=== PATIENT | male | born 1960 | race African-American/Black ===

== ENCOUNTER 2016-11-06 07:06 | Emergency (ER) | payer SELFPAY ==
--- NOTE | 2016-11-06 08:14 | RAD ---
2 VIEWS CHEST: Date: 11/06/16 COMPARISON: 06/14/16. HISTORY: Shortness of breath for 3 weeks. FINDINGS: Two views of the chest show normal sized cardiomediastinal silhouette. There is no evidence of conso lidation, mass, or pleural effusion. The bones are unremarkable. IMPRESSION: No evidence of acute cardiopulmonary disease. POS: [facility]
[2016-11-06 08:44] LABS: #Basophils 0.1 thou/uL (0.0-0.2); #Eosinphils 0.1 thou/uL (0.0-0.7); #Lymphocytes 1.9 thou/uL (1.20-3.40); #Monocytes 0.7 thou/uL (0.11-0.59); #Neutrophils 3.4 thou/uL (1.40-6.50); %Basophils 1.4 % (0.0-1.0); %Eosinophils 1.4 % (0.0-10.0); %Lymphocytes 31.5 % (21.0-51.0); %Monocytes 11.2 % (0.0-10.0); Hematocrit 47.9 % (42.0-52.0); Mean Platelet Volume 7.5 fL (7.4-10.4); Red Blood Cell (RBC) Count 5.56 mill/uL (4.70-6.10); White Blood Cell (WBC) Count 6.2 thou/uL (4.8-10.8)
[2016-11-06 09:08] LABS: ALT (SGPT) 25 U/L (8-55); AST (SGOT) 19 U/L (5-34); Alkaline Phosphatase 95 U/L (40-150); Anion Gap 15 mmol/L (10-20); BUN (Urea Nitrogen) 15 mg/dL (8.4-25.7); Bilirubin, Total 0.3 mg/dL (0.2-1.2); CK (CPK) 182 U/L (30-200); Calc. Creatinine Clearance 0 mL/min (70-130); Calcium 9.1 mg/dL (7.8-10.44); Carbon Dioxide 22 mmol/L (22-29); Chloride 106 mmol/L (98-107); Estimated GFR-MDRD 59; Globulin 3.8 g/dL (2.4-3.5); Lipase 35 U/L (8-78); Protein, Total 7.9 g/dL (6.0-8.3)
[2016-11-06 09:31] LABS: Troponin I Less than 0.010 ng/mL (< 0.028)
== END 2016-11-06 09:25 | disposition left against medical advice (07) ==
LOC: ERS 07:06
DX: R06.02 Shortness of breath (principal); R06.2 Wheezing; F17.220 Nicotine dependence, chewing tobacco, uncomplicated; I10 Essential (primary) hypertension; I48.91 Unspecified atrial fibrillation; E78.5 Hyperlipidemia, unspecified; Z79.82 Long term (current) use of aspirin; Z79.899 Other long term (current) drug therapy; Z53.21 Procedure and treatment not carried out due to patient leaving prior to being seen by health care provider
CPT/HCPCS: 36415; 71020; 80053; 82550; 82553; 83690; 84484; 85025; 85379; 93005; 94760

== ENCOUNTER 2016-12-20 09:06 | Emergency (ER) | payer SELFPAY | END 2016-12-20 09:48 | disposition home or self-care (01) | LOC: ERS 09:06 | DX: J30.9 Allergic rhinitis, unspecified (principal); I48.91 Unspecified atrial fibrillation; E78.5 Hyperlipidemia, unspecified; I10 Essential (primary) hypertension; F17.220 Nicotine dependence, chewing tobacco, uncomplicated | CPT/HCPCS: 99283 ==

== ENCOUNTER 2017-01-21 04:45 | Emergency (ER) | payer SELFPAY ==
[2017-01-21 05:46] LABS: #Basophils 0.1 thou/uL (0.0-0.2); #Eosinphils 0.1 thou/uL (0.0-0.7); #Lymphocytes 1.3 thou/uL (1.20-3.40); #Monocytes 0.5 thou/uL (0.11-0.59); %Basophils 1.8 % (0.0-1.0); %Eosinophils 1.5 % (0.0-10.0); %Lymphocytes 26.5 % (21.0-51.0); %Monocytes 10.6 % (0.0-10.0); Hematocrit 44.5 % (42.0-52.0); Mean Platelet Volume 9.5 fL (7.4-10.4); Red Blood Cell (RBC) Count 5.13 mill/uL (4.70-6.10); White Blood Cell (WBC) Count 5.1 thou/uL (4.8-10.8)
[2017-01-21 05:50] LABS: PTT 27.8 SEC (22.9-36.1); Prothrombin Time 12.9 SEC (12.0-14.7)
[2017-01-21 06:11] LABS: ALT (SGPT) 23 U/L (8-55); AST (SGOT) 18 U/L (5-34); Alkaline Phosphatase 80 U/L (40-150); Anion Gap 11 mmol/L (10-20); BUN (Urea Nitrogen) 19 mg/dL (8.4-25.7); Bilirubin, Total 0.3 mg/dL (0.2-1.2); CK (CPK) 232 U/L (30-200); Calc. Creatinine Clearance 0 mL/min (70-130); Carbon Dioxide 24 mmol/L (22-29); Chloride 108 mmol/L (98-107); Estimated GFR-MDRD 56; Globulin 3.5 g/dL (2.4-3.5); Protein, Total 7.3 g/dL (6.0-8.3)
[2017-01-21 06:12] LABS: Troponin I Less than 0.010 ng/mL (< 0.028)
[2017-01-21] MEDS ORDERED: Metoprolol Tartrate 5 MG/5 ML VIAL ONE (06:21)
[2017-01-21] MEDS ORDERED: Lisinopril 10 MG TAB ONE (06:21)
[2017-01-21] MEDS ORDERED: Furosemide 40 MG/4 ML VIAL ONE (06:21)
--- NOTE | 2017-01-21 08:01 | RAD ---
SINGLE VIEW CHEST: Date: 01/21/17 COMPARISON: 11/06/16. HISTORY: Chest pain. FINDINGS: Single view of the chest shows a normal sized cardiomediastinal silhouette. There is no evidence of c onsolidation, mass, or pleural effusion. The bones are unremarkable. IMPRESSION: No evidence of acute cardiopulmonary disease. POS: [facility]
== END 2017-01-21 07:16 | disposition home or self-care (01) ==
LOC: ERS 04:45
DX: J45.909 Unspecified asthma, uncomplicated (principal); I48.91 Unspecified atrial fibrillation; E78.5 Hyperlipidemia, unspecified; F17.220 Nicotine dependence, chewing tobacco, uncomplicated; Z79.82 Long term (current) use of aspirin; Z79.899 Other long term (current) drug therapy
CPT/HCPCS: 71010; 80053; 82553; 83880; 84484; 85025; 85610; 85730; 93005; 94640; 96374; 96375; 99406; J1940; J7620

== ENCOUNTER 2017-04-05 11:16 | Emergency (ER) | payer SELFPAY ==
[2017-04-05] MEDS ORDERED: Water For Inject, Bacteriostat 30 ML ONE (12:03)
== END 2017-04-05 12:33 | disposition home or self-care (01) ==
LOC: ERS 11:16
DX: J44.9 Chronic obstructive pulmonary disease, unspecified (principal); J02.9 Acute pharyngitis, unspecified; I48.91 Unspecified atrial fibrillation; E78.5 Hyperlipidemia, unspecified; I10 Essential (primary) hypertension; F17.220 Nicotine dependence, chewing tobacco, uncomplicated; Z79.899 Other long term (current) drug therapy; Z79.82 Long term (current) use of aspirin
CPT/HCPCS: 96372; J2920

== ENCOUNTER 2017-05-06 06:02 | Emergency (ER) | payer SELFPAY ==
[2017-05-06] MEDS ORDERED: methylPREDNISolone Sod Succ/PF 125 MG/2 ML VIAL ONE (06:44)
[2017-05-06 06:52] LABS: #Basophils 0.1 thou/uL (0.0-0.2); #Eosinphils 0.1 thou/uL (0.0-0.7); #Lymphocytes 2.3 thou/uL (1.20-3.40); #Monocytes 0.8 thou/uL (0.11-0.59); #Neutrophils 3.2 thou/uL (1.40-6.50); %Basophils 1.1 % (0.0-1.0); %Eosinophils 1.8 % (0.0-10.0); %Lymphocytes 35.4 % (21.0-51.0); %Monocytes 12.5 % (0.0-10.0); %Neutrophils 49.3 % (42.0-75.0); Hemoglobin 15.3 g/dL (14.0-18.0); Mean Corpuscular HGB CONC 33.8 g/dL (32.0-36.0); Mean Corpuscular Hemoglobin 28.5 pg (27.0-31.0); Mean Corpuscular Volume 84.3 fl (80.0-94.0); Mean Platelet Volume 7.5 fL (7.4-10.4); Platelet Count 223 thou/uL (130-400); RBC Distribution Width 13.5 % (11.5-14.5); Red Blood Cell (RBC) Count 5.37 mill/uL (4.70-6.10); White Blood Cell (WBC) Count 6.6 thou/uL (4.8-10.8)
[2017-05-06 06:53] LABS: ALT (SGPT) 23 U/L (8-55); AST (SGOT) 17 U/L (5-34); Albumin 3.9 g/dL (3.5-5.0); Alkaline Phosphatase 85 U/L (40-150); Anion Gap 9 mmol/L (10-20); BUN (Urea Nitrogen) 20 mg/dL (8.4-25.7); Bilirubin, Total 0.4 mg/dL (0.2-1.2); Calc. Creatinine Clearance 0 mL/min (70-130); Calcium 8.7 mg/dL (7.8-10.44); Carbon Dioxide 25 mmol/L (22-29); Chloride 109 mmol/L (98-107); Estimated GFR-MDRD 57; Globulin 3.2 g/dL (2.4-3.5); Glucose 104 mg/dL (70-105); Potassium 3.7 mmol/L (3.5-5.1); Protein, Total 7.1 g/dL (6.0-8.3); Sodium 139 mmol/L (136-145)
[2017-05-06 06:58] LABS: Troponin I Less than 0.010 ng/mL (< 0.028)
--- NOTE | 2017-05-06 07:43 | RAD ---
PORTABLE UPRIGHT FRONTAL CHEST RADIOGRAPH: 05/06/2017 HISTORY: Short of breath. Dyspnea. COMPARISON: 01/21/2017 FINDINGS: The heart and mediastinal contours are stable. No pneumothorax, pleural fluid, focal consolidation, or alveolar edema. IMPRESSION: No acute findings. Stable appearance of the chest. POS: [facility]
--- NOTE | 2017-05-18 22:58 | EKG ---
Test Reason : Blood Pressure : / mmHG Vent. Rate : 062 BPM Atrial Rate : 312 BPM P-R Int : 000 ms QRS Dur : 096 ms QT Int : 396 ms P-R-T Axes : 000 052 061 degrees QTc Int : 401 ms Atrial fibrillation Nonspecific T wave abnormality , probably digitalis effect Abnormal ECG Confirmed by YUMIKO FONSECA, DALLIN ([id number]), subeditor MICHAEL ANSARI ([id number]) on 05/18/2017 10:57:55 PM Referred By: Confirmed By:DALLIN CALDERON MD
== END 2017-05-06 08:03 | disposition home or self-care (01) ==
LOC: ERS 06:02
DX: J45.909 Unspecified asthma, uncomplicated (principal); I10 Essential (primary) hypertension; I48.91 Unspecified atrial fibrillation; E78.5 Hyperlipidemia, unspecified; F17.220 Nicotine dependence, chewing tobacco, uncomplicated; Z79.82 Long term (current) use of aspirin; Z71.6 Tobacco abuse counseling; Z79.899 Other long term (current) drug therapy
CPT/HCPCS: 71045; 80053; 82553; 84484; 85025; 93005; 94640; 96374; 99406; J2930; J7620

== ENCOUNTER 2017-08-15 10:05 | Emergency (ER) | payer SELFPAY ==
[2017-08-15] MEDS ORDERED: traMADol HCl 50 MG TAB ONE (11:09)
[2017-08-15] MEDS ORDERED: Acetaminophen/Codeine 30-300mg Tablet ONE (11:17)
[2017-08-15] MEDS ORDERED: HYDROcodone/Acetaminophen 5/325 mg Tablet ONE (11:20)
--- NOTE | 2017-08-15 11:39 | RAD ---
THREE VIEWS LEFT SHOULDER: Comparison: 06-19-13 History: Left shoulder pain after being hit by a pipe at work. Trauma to left shoulder. FINDINGS: Three views of the left shoulder shows no evidence of acute fracture or dislocation. A bone anchor is seen in the humerus from prior left shoulder surgery. No degenerative changes are seen. The visualiz ed left thorax is unremarkable. IMPRESSION: No evidence of acute osseous abnormality. POS: [facility]
== END 2017-08-15 11:30 | disposition home or self-care (01) ==
LOC: ERS 10:05
DX: S40.012A Contusion of left shoulder, initial encounter (principal); Z71.6 Tobacco abuse counseling; F17.220 Nicotine dependence, chewing tobacco, uncomplicated; I48.91 Unspecified atrial fibrillation; E78.5 Hyperlipidemia, unspecified; I10 Essential (primary) hypertension; Z79.82 Long term (current) use of aspirin; Z79.899 Other long term (current) drug therapy; W22.8XXA Striking against or struck by other objects, initial encounter; Y99.0 Civilian activity done for income or pay
CPT/HCPCS: 99406

== ENCOUNTER 2017-08-19 02:55 | Emergency (ER) | payer SELFPAY ==
[2017-08-19] MEDS ORDERED: HYDROcodone/Acetaminophen 5/325 mg Tablet ONE (04:51)
== END 2017-08-19 04:59 | disposition home or self-care (01) ==
LOC: ERS 02:55
DX: M25.512 Pain in left shoulder (principal); I48.91 Unspecified atrial fibrillation; E78.5 Hyperlipidemia, unspecified; I10 Essential (primary) hypertension; F17.220 Nicotine dependence, chewing tobacco, uncomplicated; Z79.82 Long term (current) use of aspirin; Z79.899 Other long term (current) drug therapy; W20.8XXA Other cause of strike by thrown, projected or falling object, initial encounter
CPT/HCPCS: 99283

== ENCOUNTER 2017-11-20 17:43 | Emergency (ER) | payer SELFPAY ==
[2017-11-20] MEDS ORDERED: Silver Sulfadiazine 1% Cream 50 GM JAR ONE (18:14)
[2017-11-20] MEDS ORDERED: HYDROcodone/Acetaminophen 5/325 mg Tablet ONE ×2 (18:48→18:49)
== END 2017-11-20 18:52 | disposition home or self-care (01) ==
LOC: ERS 17:43
DX: T22.20XA Burn of second degree of shoulder and upper limb, except wrist and hand, unspecified site, initial encounter (principal); I48.91 Unspecified atrial fibrillation; E78.5 Hyperlipidemia, unspecified; F17.220 Nicotine dependence, chewing tobacco, uncomplicated; Z79.82 Long term (current) use of aspirin; Z79.899 Other long term (current) drug therapy; X16.XXXA Contact with hot heating appliances, radiators and pipes, initial encounter
CPT/HCPCS: 16020

== ENCOUNTER 2017-12-24 12:45 | Emergency (ER) | payer SELFPAY ==
--- NOTE | 2017-12-24 13:55 | RAD ---
CHEST TWO VIEWS: HISTORY: A 57-year-old male with a history of cough for one week and history of COPD. COMPARISON: 11/06/2016 FINDINGS: Minimal cardiomegaly. Monitor leads overly the chest. No confluent pneumonia, overt edema, or pleur al effusion. IMPRESSION: Cardiomegaly without other acute process. Little change from prior study. POS: [facility]
== END 2017-12-24 13:34 | disposition home or self-care (01) ==
LOC: ERS 12:45
DX: J40 Bronchitis, not specified as acute or chronic (principal); I10 Essential (primary) hypertension; J44.9 Chronic obstructive pulmonary disease, unspecified; I48.91 Unspecified atrial fibrillation; E78.5 Hyperlipidemia, unspecified; F17.220 Nicotine dependence, chewing tobacco, uncomplicated; Z79.82 Long term (current) use of aspirin; Z79.899 Other long term (current) drug therapy
CPT/HCPCS: 71046; 93005

== ENCOUNTER 2018-01-06 00:45 | Emergency (ER) | payer SELFPAY ==
[2018-01-06 01:22] LABS: Bilirubin Negative (Negative); Blood, Urine Negative (Negative); Clarity CLEAR (Clear); Glucose, Urine (Dipstick) Negative (Negative); Leukocyte Negative (Negative); Nitrite Negative (Negative); Protein, Urine (Dipstick) 100 mg/dL (Neg-Trace); Specific Gravity, Urine 1.012 (1.002-1.036)
[2018-01-06 01:24] LABS: Bacteria/HPF None Seen HPF (None Seen); Hyaline Casts/LPF 0-3 HYALINE CAST LPF (0-3 Hyaline); RBC/HPF 0-3 HPF (0-3); Squamous Epithelial None Seen HPF (0-3); WBC/HPF None Seen HPF (0-3)
[2018-01-06 01:42] LABS: #Basophils 0.1 thou/uL (0.0-0.2); #Eosinphils 0.1 thou/uL (0.0-0.7); #Lymphocytes 1.9 thou/uL (1.20-3.40); #Monocytes 0.6 thou/uL (0.11-0.59); #Neutrophils 3.8 thou/uL (1.40-6.50); %Basophils 1.3 % (0.0-1.0); %Lymphocytes 29.1 % (21.0-51.0); %Monocytes 9.3 % (0.0-10.0); %Neutrophils 59.4 % (42.0-75.0); Mean Corpuscular HGB CONC 33.3 g/dL (32.0-36.0); Mean Corpuscular Hemoglobin 28.3 pg (27.0-31.0); Mean Corpuscular Volume 84.9 fL (78.0-98.0); Mean Platelet Volume 8.5 fL (7.4-10.4); Platelet Count 204 thou/uL (130-400); RBC Distribution Width 13.1 % (11.5-14.5); Red Blood Cell (RBC) Count 5.29 mill/uL (4.70-6.10); White Blood Cell (WBC) Count 6.4 thou/uL (4.8-10.8)
[2018-01-06] MEDS ORDERED: Dexamethasone 10 MG/ML VIAL ONE (01:43)
[2018-01-06 02:04] LABS: ALT (SGPT) 38 U/L (8-55); AST (SGOT) 29 U/L (5-34); Albumin 3.9 g/dL (3.5-5.0); Alkaline Phosphatase 85 U/L (40-150); Anion Gap 13 mmol/L (10-20); BUN (Urea Nitrogen) 18 mg/dL (8.4-25.7); Bilirubin, Total 0.3 mg/dL (0.2-1.2); Calc. Creatinine Clearance 0 mL/min (70-130); Carbon Dioxide 24 mmol/L (22-29); Chloride 110 mmol/L (98-107); Estimated GFR-MDRD 46; Globulin 3.4 g/dL (2.4-3.5); Glucose 123 mg/dL (70-105); Protein, Total 7.3 g/dL (6.0-8.3); Sodium 143 mmol/L (136-145)
[2018-01-06 02:09] LABS: CKMB 2.5 ng/mL (0-6.6); Troponin I Less than 0.010 ng/mL (< 0.028)
--- NOTE | 2018-01-06 08:27 | RAD ---
SINGLE VIEW CHEST: Date: 01/06/18 COMPARISON: 11/23/17. HISTORY: Cough for 3 weeks. FINDINGS: Single view of chest shows cardiomediastinal silhouette which is upper limits of normal in size. Ther e is no evidence of consolidation, mass, or pleural effusion. A bone anchor is seen in the left humer us from prior left shoulder surgery. IMPRESSION: No evidence of acute cardiopulmonary disease. POS: [facility]
== END 2018-01-06 03:36 | disposition home or self-care (01) ==
LOC: ERS 00:45
DX: J20.9 Acute bronchitis, unspecified (principal); I48.91 Unspecified atrial fibrillation; E78.5 Hyperlipidemia, unspecified; I10 Essential (primary) hypertension; F17.220 Nicotine dependence, chewing tobacco, uncomplicated; Z79.82 Long term (current) use of aspirin; Z79.899 Other long term (current) drug therapy; Z71.6 Tobacco abuse counseling
CPT/HCPCS: 36415; 71045; 80053; 81003; 81015; 82553; 83880; 84484; 85025; 93005; 96374; 99406; J1100; J7620

== ENCOUNTER 2018-06-11 17:45 | Emergency (ER) | payer SELFPAY ==
--- NOTE | 2018-06-11 18:52 | RAD ---
RADIOGRAPH CHEST ONE VIEW: DATE: 06/11/2018 HISTORY: 57-year-old male with dyspnea and chest pain FINDINGS: There is no airspace density, pulmonary edema, or pneumothorax. The lateral costophrenic angles are n ot effaced. IMPRESSION: No acute pulmonary findings.
[2018-06-11 18:55] LABS: #Basophils 0.1 thou/uL (0.0-0.2); #Eosinphils 0.1 thou/uL (0.0-0.7); #Lymphocytes 2.2 thou/uL (1.20-3.40); #Monocytes 0.8 thou/uL (0.11-0.59); #Neutrophils 3.5 thou/uL (1.40-6.50); %Basophils 0.8 % (0.0-1.0); %Eosinophils 1.5 % (0.0-10.0); %Lymphocytes 32.6 % (21.0-51.0); %Monocytes 12.3 % (0.0-10.0); %Neutrophils 52.8 % (42.0-75.0); Hemoglobin 13.3 g/dL (14.0-18.0); Mean Corpuscular HGB CONC 33.8 g/dL (32.0-36.0); Mean Corpuscular Hemoglobin 28.6 pg (27.0-31.0); Mean Corpuscular Volume 84.7 fL (78.0-98.0); Mean Platelet Volume 8.1 fL (7.4-10.4); Platelet Count 211 thou/uL (130-400); RBC Distribution Width 13.1 % (11.5-14.5); Red Blood Cell (RBC) Count 4.67 mill/uL (4.70-6.10); White Blood Cell (WBC) Count 6.6 thou/uL (4.8-10.8)
[2018-06-11] MEDS ORDERED: predniSONE 20 MG TAB ONE (18:57)
[2018-06-11] MEDS ORDERED: Albuterol Sulfate 2.5 mg/3 ml Neb ONE (18:58)
[2018-06-11 19:17] LABS: ALT (SGPT) 32 U/L (8-55); AST (SGOT) 26 U/L (5-34); Albumin 4.1 g/dL (3.5-5.0); Alkaline Phosphatase 75 U/L (40-150); Anion Gap 13 mmol/L (10-20); BUN (Urea Nitrogen) 21 mg/dL (8.4-25.7); Bilirubin, Total 0.3 mg/dL (0.2-1.2); Calc. Creatinine Clearance 0 mL/min (70-130); Calcium 9.3 mg/dL (7.8-10.44); Carbon Dioxide 26 mmol/L (22-29); Chloride 109 mmol/L (98-107); Estimated GFR-MDRD 55; Globulin 3.4 g/dL (2.4-3.5); Glucose 103 mg/dL (70-105); Potassium 3.7 mmol/L (3.5-5.1); Protein, Total 7.5 g/dL (6.0-8.3); Sodium 144 mmol/L (136-145)
--- NOTE | 2018-06-15 00:06 | EKG ---
Test Reason : Blood Pressure : / mmHG Vent. Rate : 076 BPM Atrial Rate : 111 BPM P-R Int : 000 ms QRS Dur : 092 ms QT Int : 346 ms P-R-T Axes : 000 026 -59 degrees QTc Int : 389 ms Atrial fibrillation Nonspecific T wave abnormality No STEMI Abnormal ECG Confirmed by CITLALLI CRAWFORD M.D. ([id number]), online content editor MICHAEL ANSARI ([id number]) on 06/15/2018 12:06:20 AM Referred By: Confirmed By:CITLALLI CRAWFORD M.D.
== END 2018-06-11 20:00 | disposition home or self-care (01) ==
LOC: ERS 17:45
DX: J44.1 Chronic obstructive pulmonary disease with (acute) exacerbation (principal); E78.5 Hyperlipidemia, unspecified; I48.91 Unspecified atrial fibrillation; I10 Essential (primary) hypertension; F17.220 Nicotine dependence, chewing tobacco, uncomplicated; Z79.82 Long term (current) use of aspirin; Z79.51 Long term (current) use of inhaled steroids
CPT/HCPCS: 71045; 80053; 84484; 85025; 93005; 94644; J7512; J7611; J7620

== ENCOUNTER 2018-09-19 13:04 | Emergency (ER) | payer SELFPAY ==
[2018-09-19] MEDS ORDERED: Acetaminophen 500 MG TAB ONE (14:11)
--- NOTE | 2018-09-19 15:22 | RAD ---
3 VIEWS RIGHT FOOT: Date: 09/19/18 COMPARISON: None. HISTORY: Right foot injury with pain. FINDINGS: 3 views of the right foot show no evidence of acute fracture or dislocation. Mild dorsal soft tissue swelling is seen. No degenerative changes are present. IMPRESSION: No evidence of acute osseous abnormality. POS: [facility]
== END 2018-09-19 14:48 | disposition home or self-care (01) ==
LOC: ERS 13:04
DX: M79.671 Pain in right foot (principal); J44.9 Chronic obstructive pulmonary disease, unspecified; I49.9 Cardiac arrhythmia, unspecified; I48.91 Unspecified atrial fibrillation; E78.5 Hyperlipidemia, unspecified; I10 Essential (primary) hypertension; F17.220 Nicotine dependence, chewing tobacco, uncomplicated; Z79.82 Long term (current) use of aspirin; Z79.899 Other long term (current) drug therapy; Z79.51 Long term (current) use of inhaled steroids; W20.8XXA Other cause of strike by thrown, projected or falling object, initial encounter

== ENCOUNTER 2018-12-21 05:16 | Emergency (ER) | payer MEDICAID | END 2018-12-21 06:36 | disposition left against medical advice (07) | LOC: ERS 05:16 | DX: Z53.21 Procedure and treatment not carried out due to patient leaving prior to being seen by health care provider (principal) ==

== ENCOUNTER 2019-03-15 06:17 | Emergency (ER) | payer MEDICAID, SELFPAY ==
[2019-03-15] MEDS ORDERED: cloNIDine 0.1 MG TAB ONE (06:56)
[2019-03-15 07:01] LABS: #Basophils 0.1 thou/uL (0.0-0.2); #Eosinphils 0.1 thou/uL (0.0-0.7); #Lymphocytes 1.6 thou/uL (1.20-3.40); #Monocytes 0.9 thou/uL (0.11-0.59); #Neutrophils 5.2 thou/uL (1.40-6.50); %Basophils 1.4 % (0.0-1.0); %Eosinophils 1.2 % (0.0-10.0); %Lymphocytes 20.7 % (21.0-51.0); %Neutrophils 65.7 % (42.0-75.0); Hemoglobin 14.3 g/dL (14.0-18.0); Mean Corpuscular HGB CONC 32.5 g/dL (32.0-36.0); Mean Corpuscular Hemoglobin 27.6 pg (27.0-31.0); Mean Corpuscular Volume 84.8 fL (78.0-98.0); Mean Platelet Volume 8.3 fL (7.4-10.4); Platelet Count 206 thou/uL (130-400); Red Blood Cell (RBC) Count 5.17 mill/uL (4.70-6.10); White Blood Cell (WBC) Count 7.9 thou/uL (4.8-10.8)
[2019-03-15 07:33] LABS: ALT (SGPT) 23 U/L (8-55); AST (SGOT) 14 U/L (5-34); Albumin 4.1 g/dL (3.5-5.0); Alkaline Phosphatase 74 U/L (40-110); Anion Gap 11 mmol/L (10-20); BUN (Urea Nitrogen) 18 mg/dL (8.4-25.7); Bilirubin, Total 0.6 mg/dL (0.2-1.2); Calc. Creatinine Clearance 0 mL/min (70-130); Calcium 9.1 mg/dL (7.8-10.44); Carbon Dioxide 31 mmol/L (22-29); Chloride 105 mmol/L (98-107); Estimated GFR-MDRD 54; Globulin 3.3 g/dL (2.4-3.5); Glucose 99 mg/dL (70-105); Potassium 3.6 mmol/L (3.5-5.1); Protein, Total 7.4 g/dL (6.0-8.3); Sodium 143 mmol/L (136-145)
--- NOTE | 2019-03-15 07:46 | RAD ---
RADIOGRAPH CHEST 1 VIEW: DATE: 03/15/2019 HISTORY: 58-year-old male with productive cough and fever. FINDINGS: The thoracic aorta is tortuous and ectatic. There is no evidence of airspace density, pulmonary edema , or pneumothorax. The lateral costophrenic angles are not effaced. IMPRESSION: 1) No acute pulmonary findings. 2) ectasia of thoracic aorta.
[2019-03-15] MEDS ORDERED: Furosemide 40 MG/4 ML VIAL ONE (08:00)
== END 2019-03-15 08:30 | disposition home or self-care (01) ==
LOC: ERS 06:17
DX: J44.1 Chronic obstructive pulmonary disease with (acute) exacerbation (principal); I48.91 Unspecified atrial fibrillation; I10 Essential (primary) hypertension; F17.220 Nicotine dependence, chewing tobacco, uncomplicated; E78.5 Hyperlipidemia, unspecified; E78.00 Pure hypercholesterolemia, unspecified; Z79.899 Other long term (current) drug therapy; Z79.82 Long term (current) use of aspirin
CPT/HCPCS: 71045; 80053; 83880; 85025; 94640; 96374; J1940; J7620

== ENCOUNTER 2019-05-21 11:43 | Emergency (ER) | payer SELFPAY ==
[2019-05-21] MEDS ORDERED: Albuterol 200 PUFF (6.7GM INHALER) ONE (12:19)
[2019-05-21] MEDS ORDERED: predniSONE 20 MG TAB ONE (12:19)
--- NOTE | 2019-05-22 13:07 | EKG ---
Test Reason : Blood Pressure : / mmHG Vent. Rate : 072 BPM Atrial Rate : 375 BPM P-R Int : 000 ms QRS Dur : 088 ms QT Int : 402 ms P-R-T Axes : 000 032 226 degrees QTc Int : 440 ms Atrial fibrillation T wave abnormality, consider inferolateral ischemia or digitalis effect Abnormal ECG Confirmed by ALTON MORA DO ([id number]), video effects editor MICHAEL ANSARI ([id number]) on 05/22/2019 1:06:36 PM Referred By: Confirmed By:ALTON MORA DO
== END 2019-05-21 12:40 | disposition home or self-care (01) ==
LOC: ERS 11:43
DX: J44.1 Chronic obstructive pulmonary disease with (acute) exacerbation (principal); I48.91 Unspecified atrial fibrillation; I10 Essential (primary) hypertension; F17.220 Nicotine dependence, chewing tobacco, uncomplicated; E78.00 Pure hypercholesterolemia, unspecified; E78.5 Hyperlipidemia, unspecified; Z79.899 Other long term (current) drug therapy; Z79.82 Long term (current) use of aspirin
CPT/HCPCS: 93005; J7512

== ENCOUNTER 2019-10-17 16:07 | Emergency (ER) | payer SELFPAY ==
[2019-10-17] MEDS ORDERED: predniSONE 20 MG TAB ONE (16:35)
--- NOTE | 2019-10-17 16:46 | RAD ---
PORTABLE CHEST: 10/17/19 HISTORY: Cough and wheezing. COMPARISON: 03/15/19 study. Heart size is enlarged. Mediastinal structures are unremarkable. The lungs are clear of infiltrates. There are no signs of failure. IMPRESSION: Cardiomegaly. POS: [facility]
[2019-10-17] MEDS ORDERED: Albuterol Sulfate 2.5 mg/0.5 ml Neb ONE (17:01)
[2019-10-17] MEDS ORDERED: Albuterol Sulfate 2.5 mg/3 ml Neb ONE (17:01)
--- NOTE | 2019-10-20 14:35 | EKG ---
Test Reason : Blood Pressure : / mmHG Vent. Rate : 071 BPM Atrial Rate : 049 BPM P-R Int : 000 ms QRS Dur : 094 ms QT Int : 374 ms P-R-T Axes : 000 041 252 degrees QTc Int : 406 ms Atrial fibrillation Abnormal ECG Confirmed by ALTON MORA DO ([id number]), proposal editor MICHAEL ANSARI ([id number]) on 10/20/2019 2:34:22 PM Referred By: Confirmed By:ALTON MORA DO
== END 2019-10-17 18:02 | disposition home or self-care (01) ==
LOC: ERS 16:07
DX: J44.1 Chronic obstructive pulmonary disease with (acute) exacerbation (principal); I48.91 Unspecified atrial fibrillation; E78.5 Hyperlipidemia, unspecified; I10 Essential (primary) hypertension; F17.220 Nicotine dependence, chewing tobacco, uncomplicated; Z79.899 Other long term (current) drug therapy; Z79.82 Long term (current) use of aspirin
CPT/HCPCS: 71045; 93005; 94640; J7512; J7611

== ENCOUNTER 2020-05-15 20:08 | Emergency (ER) | payer MEDICARE, OTHER ==
[2020-05-15 20:54] LABS: Hemoglobin 14.1 g/dL (14.0-18.0); Mean Corpuscular HGB CONC 33.7 g/dL (32.0-36.0); Mean Corpuscular Hemoglobin 28.6 pg (27.0-31.0); Mean Corpuscular Volume 84.9 fL (78.0-98.0); Mean Platelet Volume 8.1 fL (7.4-10.4); Platelet Count 212 thou/uL (130-400); Red Blood Cell (RBC) Count 4.93 mill/uL (4.70-6.10); White Blood Cell (WBC) Count 6.1 thou/uL (4.8-10.8)
[2020-05-15 21:15] LABS: Anion Gap 15 mmol/L (10-20); BUN (Urea Nitrogen) 25 mg/dL (8.4-25.7); Calc. Creatinine Clearance 0 mL/min (70-130); Calcium 8.5 mg/dL (7.8-10.44); Carbon Dioxide 23 mmol/L (22-29); Chloride 109 mmol/L (98-107); Glucose 113 mg/dL (70-105); Potassium 4.2 mmol/L (3.5-5.1); Sodium 143 mmol/L (136-145)
[2020-05-15 21:16] LABS: Band 3 % (5-11); Lymphocytes 12 % (21-51); MDiff Complete? YES; Monocytes 3 % (0-10); Neutrophil 82 % (42-75); Platelet Morphology Comment Appears Adequate; RBC Morphology Normal
== END 2020-05-15 22:19 | disposition home or self-care (01) ==
LOC: ERS 20:08
DX: J44.1 Chronic obstructive pulmonary disease with (acute) exacerbation (principal); I48.91 Unspecified atrial fibrillation; E78.5 Hyperlipidemia, unspecified; E78.00 Pure hypercholesterolemia, unspecified; I10 Essential (primary) hypertension; F17.200 Nicotine dependence, unspecified, uncomplicated; F17.220 Nicotine dependence, chewing tobacco, uncomplicated; Z79.82 Long term (current) use of aspirin; Z79.899 Other long term (current) drug therapy
CPT/HCPCS: 36415; 71045; 80048; 83880; 85025; 93005; 94640; J7620

== ENCOUNTER 2020-07-26 01:09 | Emergency (ER) | payer MEDICARE, MEDICAID ==
[2020-07-26 01:59] LABS: #Basophils 0.1 thou/uL (0.0-0.2); #Eosinphils 0.1 thou/uL (0.0-0.7); #Lymphocytes 2.1 thou/uL (1.20-3.40); #Neutrophils 4.5 thou/uL (1.40-6.50); %Basophils 1.2 % (0.0-1.0); %Eosinophils 1.6 % (0.0-10.0); %Lymphocytes 26.4 % (21.0-51.0); %Monocytes 12.5 % (0.0-10.0); %Neutrophils 58.4 % (42.0-75.0); Hemoglobin 14.7 g/dL (14.0-18.0); Mean Corpuscular HGB CONC 34.7 g/dL (32.0-36.0); Mean Corpuscular Hemoglobin 29.7 pg (27.0-31.0); Mean Corpuscular Volume 85.6 fL (78.0-98.0); Mean Platelet Volume 8.4 fL (7.4-10.4); Platelet Count 206 thou/uL (130-400); RBC Distribution Width 13.4 % (11.5-14.5); Red Blood Cell (RBC) Count 4.94 mill/uL (4.70-6.10); White Blood Cell (WBC) Count 7.8 thou/uL (4.8-10.8)
[2020-07-26 02:14] LABS: ALT (SGPT) 18 U/L (8-55); AST (SGOT) 18 U/L (5-34); Albumin 3.7 g/dL (3.5-5.0); Alkaline Phosphatase 77 U/L (40-110); Anion Gap 11 mmol/L (10-20); BUN (Urea Nitrogen) 20 mg/dL (8.4-25.7); Bilirubin, Total 0.2 mg/dL (0.2-1.2); Calc. Creatinine Clearance 0 mL/min (70-130); Calcium 8.5 mg/dL (7.8-10.44); Carbon Dioxide 26 mmol/L (22-29); Chloride 106 mmol/L (98-107); Globulin 3.7 g/dL (2.4-3.5); Glucose 123 mg/dL (70-105); Lipase 40 U/L (8-78); Potassium 3.8 mmol/L (3.5-5.1); Protein, Total 7.4 g/dL (6.0-8.3); Sodium 139 mmol/L (136-145)
[2020-07-26] MEDS ORDERED: Iopamidol 370 76% 100 ML VIAL ONE (13:25)
== END 2020-07-26 03:01 | disposition home or self-care (01) ==
LOC: ERS 01:09
DX: R10.11 Right upper quadrant pain (principal); R10.811 Right upper quadrant abdominal tenderness; J44.9 Chronic obstructive pulmonary disease, unspecified; E78.5 Hyperlipidemia, unspecified; E78.00 Pure hypercholesterolemia, unspecified; I10 Essential (primary) hypertension; F17.220 Nicotine dependence, chewing tobacco, uncomplicated; I48.91 Unspecified atrial fibrillation; Z79.82 Long term (current) use of aspirin; Z79.899 Other long term (current) drug therapy
CPT/HCPCS: 71045; 74177; 80053; 83690; 84484; 85025; 93005; Q9967

== ENCOUNTER 2020-11-06 15:45 | Emergency (ER) | payer OTHER, MEDICARE, MEDICAID | END 2020-11-06 18:13 | disposition home or self-care (01) | LOC: ERS 15:45 | DX: S09.90XA Unspecified injury of head, initial encounter (principal); J44.9 Chronic obstructive pulmonary disease, unspecified; I48.91 Unspecified atrial fibrillation; E78.00 Pure hypercholesterolemia, unspecified; E78.5 Hyperlipidemia, unspecified; I10 Essential (primary) hypertension; V44.5XXA Car driver injured in collision with heavy transport vehicle or bus in traffic accident, initial encounter; F17.220 Nicotine dependence, chewing tobacco, uncomplicated; Z79.82 Long term (current) use of aspirin; Z79.899 Other long term (current) drug therapy | CPT/HCPCS: 70450; 72125 ==

== ENCOUNTER 2020-12-21 21:11 | Emergency (ER) | payer MEDICAID, MEDICARE ==
[2020-12-21] MEDS ORDERED: Ketorolac Tromethamine 30 MG/ML VIAL ONE (21:37)
[2020-12-21] MEDS ORDERED: HYDROcodone/Acetaminophen 10/325 mg Tablet ONE (21:40)
== END 2020-12-21 22:25 | disposition home or self-care (01) ==
LOC: ERS 21:11
DX: M10.9 Gout, unspecified (principal); J44.9 Chronic obstructive pulmonary disease, unspecified; I48.91 Unspecified atrial fibrillation; E78.00 Pure hypercholesterolemia, unspecified; I10 Essential (primary) hypertension; F17.220 Nicotine dependence, chewing tobacco, uncomplicated; Z79.82 Long term (current) use of aspirin; Z79.899 Other long term (current) drug therapy
CPT/HCPCS: 99283; J1885

== ENCOUNTER 2021-02-19 05:57 | Emergency (ER) | payer MEDICARE, MEDICAID ==
[2021-02-19] MEDS ORDERED: predniSONE 20 MG TAB ONE (07:09)
[2021-02-19] MEDS ORDERED: Ibuprofen 800 MG TAB ONE (07:09)
== END 2021-02-19 07:16 | disposition home or self-care (01) ==
LOC: ERS 05:57
DX: M79.671 Pain in right foot (principal); J44.9 Chronic obstructive pulmonary disease, unspecified; I48.91 Unspecified atrial fibrillation; I10 Essential (primary) hypertension; E78.00 Pure hypercholesterolemia, unspecified; F17.220 Nicotine dependence, chewing tobacco, uncomplicated; Z79.82 Long term (current) use of aspirin; Z79.899 Other long term (current) drug therapy
CPT/HCPCS: 99283; J7512

== ENCOUNTER 2022-01-21 21:08 | Emergency (ER) | payer MEDICARE, OTHER ==
[2022-01-21] MEDS ORDERED: HYDROcodone/Acetaminophen 5/325 mg Tablet ONE (21:42)
[2022-01-22] MEDS ORDERED: HYDROcodone/Acetaminophen 5/325 mg Tablet ONE (00:46)
== END 2022-01-22 00:15 | disposition home or self-care (01) ==
LOC: ERS 21:08
DX: S63.91XA Sprain of unspecified part of right wrist and hand, initial encounter (principal); W23.0XXA Caught, crushed, jammed, or pinched between moving objects, initial encounter

== ENCOUNTER 2023-07-05 10:15 | Emergency (ER) | payer OTHER ==
[2023-07-05] MEDS ORDERED: EPINEPHrine 1 MG/ML VIAL ONE (10:28)
[2023-07-05] MEDS ORDERED: Dexamethasone 10 MG/ML VIAL ONE (10:38)
[2023-07-05] MEDS ORDERED: diphenhydrAMINE 12.5 MG/5 ML UDCUP ONE (10:38)
[2023-07-05] MEDS ORDERED: Ketorolac Tromethamine 30 MG (1 mL) VIAL ONE (10:38)
[2023-07-05] MEDS ORDERED: HYDROcodone/Acetaminophen 5/325 mg Tablet ONE ×2 (10:50→10:52)
[2023-07-05] MEDS ORDERED: Ipratropium/Albuterol 3 ML NEB ONE (10:50)
== END 2023-07-05 14:12 | disposition home or self-care (01) ==
LOC: ERS 10:15
DX: T63.441A Toxic effect of venom of bees, accidental (unintentional), initial encounter (principal); I48.91 Unspecified atrial fibrillation; I10 Essential (primary) hypertension; Z79.01 Long term (current) use of anticoagulants
CPT/HCPCS: 96372; 96374; 99284; J0171; J1100; J1885; J7620; Q0163

== ENCOUNTER 2023-11-17 12:48 | Emergency (ER) | payer OTHER ==
[2023-11-17] MEDS ORDERED: HYDROcodone/Acetaminophen 10/325 mg Tablet ONE (13:52)
[2023-11-17] MEDS ORDERED: predniSONE 20 MG TAB ONE (13:52)
[2023-11-17 14:29] LABS: #Basophils 0.03 10x3/uL (0.0-0.2); %Basophils 0.3 % (0.0-1.0); %Eosinophils 0.6 % (0.0-10.0); %Lymphocytes 15.3 % (21.0-51.0); %Neutrophils 71.5 % (42.0-75.0); Hematocrit 45.1 % (42.0-52.0); Hemoglobin 14.7 g/dL (14.0-18.0); Mean Corpuscular HGB CONC 32.6 g/dL (32.0-36.0); Mean Corpuscular Hemoglobin 26.3 pg (27.0-31.0); Mean Corpuscular Volume 80.8 fL (78.0-98.0); Mean Platelet Volume 10.6 fL (7.4-10.4); Platelet Count 221 10x3/uL (130-400); RBC Distribution Width 15.6 % (11.5-14.5); Red Blood Cell (RBC) Count 5.58 mill/uL (4.70-6.10)
[2023-11-17 14:46] LABS: CRP,High Sensitivity (Inhouse) 1.22 mg/dL (< or = 0.5)
[2023-11-17 14:47] LABS: ALT (SGPT) 14 U/L (8-55); AST (SGOT) 14 U/L (5-34); Albumin 3.8 g/dL (3.4-4.8); Alkaline Phosphatase 94 U/L (40-110); Anion Gap 11 mmol/L (10-20); BUN (Urea Nitrogen) 15 mg/dL (8.4-25.7); Bilirubin, Total 0.6 mg/dL (0.2-1.2); Calc. Creatinine Clearance 0 mL/min (70-130); Calcium 9.6 mg/dL (7.8-10.44); Carbon Dioxide 29 mmol/L (23-31); Chloride 101 mmol/L (98-107); Estimated GFR 56; Globulin 3.4 g/dL (2.4-3.5); Glucose 91 mg/dL (80-115); Potassium 3.3 mmol/L (3.5-5.1); Protein, Total 7.2 g/dL (5.8-8.1); Sodium 138 mmol/L (136-145); Uric Acid 9.1 mg/dL (3.5-7.2)
== END 2023-11-17 17:09 | disposition home or self-care (01) ==
LOC: ERS 12:48
DX: M10.9 Gout, unspecified (principal); I10 Essential (primary) hypertension; I48.91 Unspecified atrial fibrillation; J44.9 Chronic obstructive pulmonary disease, unspecified; F17.220 Nicotine dependence, chewing tobacco, uncomplicated; E78.00 Pure hypercholesterolemia, unspecified; Z79.01 Long term (current) use of anticoagulants; Z79.899 Other long term (current) drug therapy
CPT/HCPCS: 36415; 80053; 84550; 85025; 86141; 99283; J7512

== ENCOUNTER 2024-03-22 17:44 | Emergency (ER) | payer OTHER ==
[2024-03-22] MEDS ORDERED: Pantoprazole 40 MG VIAL ONE (18:16)
[2024-03-22 18:17] LABS: #Basophils 0.04 10x3/uL (0.0-0.2); %Basophils 0.5 % (0.0-1.0); %Lymphocytes 23.9 % (21.0-51.0); %Neutrophils 62.5 % (42.0-75.0); Hematocrit 41.7 % (42.0-52.0); Hemoglobin 13.8 g/dL (14.0-18.0); Mean Corpuscular HGB CONC 33.1 g/dL (32.0-36.0); Mean Corpuscular Hemoglobin 26.3 pg (27.0-31.0); Mean Corpuscular Volume 79.4 fL (78.0-98.0); Mean Platelet Volume 9.7 fL (7.4-10.4); Platelet Count 205 10x3/uL (130-400); RBC Distribution Width 14.9 % (11.5-14.5); Red Blood Cell (RBC) Count 5.25 mill/uL (4.70-6.10)
[2024-03-22 18:32] LABS: ALT (SGPT) 26 U/L (Less than 45); AST (SGOT) 22 U/L (11-34); Albumin 4.2 g/dL (3.1-4.5); Alkaline Phosphatase 92 U/L (40-110); Anion Gap 16 mmol/L (10-20); BUN (Urea Nitrogen) 14 mg/dL (8.4-25.7); Bilirubin, Total 0.4 mg/dL (0.3-1.2); Calc. Creatinine Clearance 0 mL/min (70-130); Calcium 9.3 mg/dL (7.8-10.44); Carbon Dioxide 26 mmol/L (23-31); Chloride 103 mmol/L (98-107); Estimated GFR 51; Globulin 3.2 g/dL (2.4-3.5); Glucose 92 mg/dL (80-115); Potassium 3.3 mmol/L (3.5-5.1); Protein, Total 7.4 g/dL (5.8-8.1); Sodium 142 mmol/L (136-145)
[2024-03-22 18:35] LABS: Troponin I Less than 0.010 ng/mL (< 0.028)
== END 2024-03-22 18:50 | disposition home or self-care (01) ==
LOC: ERS 17:44
DX: R07.89 Other chest pain (principal); J44.9 Chronic obstructive pulmonary disease, unspecified; E11.9 Type 2 diabetes mellitus without complications; I10 Essential (primary) hypertension
CPT/HCPCS: 71045; 80053; 84484; 85025; 93005; J2470; 96374

== ENCOUNTER 2024-09-17 23:17 | Emergency (ER) | payer OTHER ==
[2024-09-17 23:50] LABS: #Basophils 0.03 10x3/uL (0.0-0.2); #Eosinophils Less than 0.03 10x3/uL (0.0-0.7); #Monocytes 0.78 10x3/uL (0.11-0.59); #Neutrophils 6.22 10x3/uL (1.40-6.50); %Basophils 0.3 % (0.0-1.0); %Eosinophils 0.2 % (0.0-10.0); %Lymphocytes 18.0 % (21.0-51.0); %Monocytes 9.0 % (0.0-10.0); %Neutrophils 72.3 % (42.0-75.0); Hematocrit 50.0 % (42.0-52.0); Hemoglobin 16.2 g/dL (14.0-18.0); Mean Corpuscular Hemoglobin 27.0 pg (27.0-31.0); Mean Corpuscular Volume 83.5 fL (78.0-98.0); Platelet Count 226 10x3/uL (130-400); Red Blood Cell (RBC) Count 5.99 mill/uL (4.70-6.10); White Blood Cell (WBC) Count 8.62 10x3/uL (4.8-10.8)
[2024-09-18 00:23] LABS: ALT (SGPT) 27 U/L (Less than 45); AST (SGOT) 27 U/L (11-34); Albumin 4.4 g/dL (3.1-4.5); Alkaline Phosphatase 94 U/L (40-110); Anion Gap 17 mmol/L (10-20); BUN (Urea Nitrogen) 20 mg/dL (8.4-25.7); Bilirubin, Total 0.4 mg/dL (0.3-1.2); Calc. Creatinine Clearance 0 mL/min (70-130); Calcium 9.3 mg/dL (7.8-10.44); Carbon Dioxide 24 mmol/L (23-31); Chloride 105 mmol/L (98-107); Globulin 3.7 g/dL (2.4-3.5); Glucose 108 mg/dL (80-115); Potassium 3.6 mmol/L (3.5-5.1); Sodium 142 mmol/L (136-145)
[2024-09-18 00:24] LABS: Troponin I Less than 0.010 ng/mL (< 0.028)
[2024-09-18 02:47] LABS: Troponin I Less than 0.010 ng/mL (< 0.028)
== END 2024-09-18 03:02 | disposition home or self-care (01) ==
LOC: ERS 23:17
DX: F14.90 Cocaine use, unspecified, uncomplicated (principal); R00.0 Tachycardia, unspecified; I48.20 Chronic atrial fibrillation, unspecified; I10 Essential (primary) hypertension; E78.00 Pure hypercholesterolemia, unspecified; E11.9 Type 2 diabetes mellitus without complications; J44.9 Chronic obstructive pulmonary disease, unspecified; F17.220 Nicotine dependence, chewing tobacco, uncomplicated; Z79.899 Other long term (current) drug therapy; Z79.51 Long term (current) use of inhaled steroids; Z79.01 Long term (current) use of anticoagulants
CPT/HCPCS: 36415; 71045; 80053; 83880; 84484; 85025; 93005; 94760